=== PATIENT | male | born 1965 | race Caucasian/White ===

== ENCOUNTER 2019-01-14 15:17 | Emergency (ER) | payer OTHER ==
--- NOTE | 2019-01-14 16:30 | ED ---
Fall HPI - General Chief Complaint: Fall Stated Complaint: Fall, rib pain Time Seen by Provider: 01/14/19 16:00 Source: patient Mode of arrival: ambulatory - History of Present Illness Initial Comments: 53-year-old male with diabetes and hypertension presents today for chief complaint of right rib pain and fall and ice. Patient states bodies at work he slipped and fell on ice, he states as he fell he landed on his right side with his right elbow digging into his right side of his wrist. Patient denies hitting his head, patient denies any neck, back pain, headache, visual changes, elbow and shoulder pain, lower extremity pain. Patient states his only pain is at the right side of his ribs, 8 he states is increased with deep inspiration. Patient denies any chest pain, dyspnea, dyspnea on exertion. Upon arrival patient appears well no signs of distress. Patient pleasant. Remaining review of system negative, patient denies any recent fever, chills, abdominal pain, nausea or vomiting, numbness or tingling, dysuria or hematuria, constipation or diarrhea, or visual changes, or any other complaints. Review of Systems ROS Statement: Those systems with pertinent positive or pertinent negative responses have been documented in the HPI. ROS Other: All systems not noted in ROS Statement are negative. Past Medical History Past Medical History: Diabetes Mellitus, Hyperlipidemia, Hypertension, Thyroid Disorder History of Any Multi-Drug Resistant Organisms: None Reported Additional Past Surgical History / Comment(s): cataract surgery, cleft lip surgery Past Psychological History: No Psychological Hx Reported Smoking Status: Never smoker Past Alcohol Use History: None Reported Past Drug Use History: None Reported General Exam - General Exam Comments Initial Comments: General: The patient is awake and alert, in no distress, and does not appear acutely ill. Eye: Pupils are equal, round and reactive to light, extra-ocular movements are intact. No nystagmus. There is normal conjunctiva bilaterally. No signs of icterus. Ears, nose, mouth and throat: There are moist mucous membranes and no oral lesions. Neck: The neck is supple, there is no tenderness or JVD. No midline tenderness to patient of the entire length of spell call from cervical to lumbar. No paravertebral tenderness. Patient is able to fully range of the cervical spine with flexion, extension, lateral flexion and rotation. Cardiovascular: There is a regular rate and rhythm. No murmur, rub or gallop is appreciated. Respiratory: Lungs are clear to auscultation, respirations are non-labored, breath sounds are equal. No wheezes, stridor, rales, or rhonchi. Breath sounds present in all lung mercado. Gastrointestinal: Soft, non-distended, non-tender abdomen without masses or organomegaly noted. There is no rebound or guarding present. No CVA tenderness. Bowel sounds are unremarkable. Musculoskeletal: Under palpation over the right lateral lower ribs. No bruising or ecchymosis no soft tissue swelling. Normal ROM, no tenderness of the lower extremities and upper extremities equal and comparison bilaterally. Strength 5/5 of the UE and LE equal in comparison b/l. Sensation intact of the UE and LE equal b/l. Radial and DP pulses equal bilaterally 2+. Neurological: A&O x 3. CN II-XII intact, There are no obvious motor or sensory deficits. Coordination appears grossly intact. Speech is normal. Skin: Skin is warm and dry and no rashes or lesions are noted. Psychiatric: Cooperative, appropriate mood & affect, normal judgment. Limitations: no limitations Course Vital Signs 01/14/19 18:05 Temperature 97.6 F Pulse Rate 90 Respiratory 18 Rate Blood Pressure 145/71 O2 Sat by Pulse 98 Oximetry Medical Decision Making - Medical Decision Making Appearing 53-year-old male there is no signs of distress or respiratory distress upon arrival. Patient appears comfortable. Patient complaining of right-sided rib pain. Chest x-ray negative for pneumothorax. Breath sounds are present in all lung mercado. There is no evidence of rib fracture. Most likely rib contusion at this time. Patient denies any significant pain of the right elbow. Patient denies head injury or neck injury. He denies any complaints of back pain. Patient at this time is stable for discharge with return parameters for any concerning symptoms. Patient was given incentive spirometer to prevent splinting and possible left pneumonia from rib contusion. Patient is agreeable plan and discharge, I instructed patient to follow up outpatient with primary care provider in the next 1-2 days. Patient verbalized understanding. I discussed the case with attending provider Dr. Harrell who agreed with impression and plan. Disposition Clinical Impression: Bruised rib Disposition: HOME SELF-CARE Condition: Good Instructions (If sedation given, give patient instructions): Rib Contusion (ED) Additional Instructions: Please use medication as discussed. Please follow-up with family doctor in the next 2 days. Please return to emergency room if the symptoms increase or worsen or for any other concerns. Is patient prescribed a controlled substance at d/c from ED?: No Referrals: Reynaldo Toribio MD [Primary Care Provider] - 1-2 days Time of Disposition: 17:28
--- NOTE | 2019-01-14 17:09 | XR ---
Chest x-ray and right RIBS 5 views. History right rib pain. Comparison none. FINDINGS: There is some linear density at the left lung base. There is no evidence of pleural effusion or pneum othorax. Heart and mediastinum are normal. The right ribs appear intact. There is some spurring at th e glenohumeral joint. IMPRESSION: No fracture seen. Subsegmental atelectasis in the left lower lobe. Normal heart.
[2019-01-14 18:09] VITALS: BP 145/71; PULSE 90; RESP 18; TEMP 97.6
== END 2019-01-14 18:09 | disposition home or self-care (01) ==
LOC: EC 15:17
DX: S20.211A Contusion of right front wall of thorax, initial encounter (principal); W00.0XXA Fall on same level due to ice and snow, initial encounter; Y92.69 Other specified industrial and construction area as the place of occurrence of the external cause; Y99.0 Civilian activity done for income or pay
CPT/HCPCS: 99283

== ENCOUNTER → 2019-01-18 | Outpatient (CLI) | payer OTHER ==
--- NOTE | 2019-01-18 09:10 | XR ---
EXAMINATION TYPE: XR elbow complete RT DATE OF EXAM: 01/18/2019 COMPARISON: None HISTORY: Slip and fall, pain TECHNIQUE: Three-view right elbow FINDINGS: No acute fractures are evident. Radius aligns normally with the humerus. Anterior fat pad i s normal. No elevation of posterior fat pad is evident which is normal. Soft tissues appear unremarka ble. IMPRESSION: 1. Normal three-view right elbow. 2. Follow-up exams can be performed 7-10 days from acute trauma for continued pain.
== END | disposition home or self-care (01) ==
LOC: RADXRMAIN 07:56
PROVIDERS: ATTEND Emergency Medicine
DX: S50.01XA Contusion of right elbow, initial encounter (principal)

== ENCOUNTER → 2020-10-23 | Outpatient (CLI) | payer BC ==
--- NOTE | 2020-10-23 13:30 | US ---
EXAMINATION TYPE: US kidneys/renal and bladder DATE OF EXAM: 10/23/2020 COMPARISON: NONE CLINICAL HISTORY: R80.9 Proteinuria, unspecified . Abnormal labs. EXAM MEASUREMENTS: Right Kidney: 9.8 x 5.4 x 4.4 cm Left Kidney: 11.2 x 5.0 x 4.3 cm Right Kidney: No hydronephrosis or masses seen Left Kidney: No hydronephrosis or masses seen Bladder: Anechoic Bilateral Jets seen: No Urinary bladder is sonolucent IMPRESSION: 1. Normal renal ultrasound
== END | disposition home or self-care (01) ==
LOC: RADUSWWP 12:53
PROVIDERS: ATTEND Family Medicine
DX: R80.9 Proteinuria, unspecified (principal)
CPT/HCPCS: 76770

== ENCOUNTER → 2022-12-20 | Outpatient (CLI) | payer BC ==
--- NOTE | 2022-12-20 15:54 | US ---
EXAMINATION TYPE: US kidneys/renal and bladder DATE OF EXAM: 12/20/2022 COMPARISON: NONE CLINICAL HISTORY: 57-year-old male N18.32 CHRONIC KIDNEY DISEASE, STAGE 3B. CKD TECHNIQUE: Multiple sonographic images of the kidneys and bladder are obtained. FINDINGS: EXAM MEASUREMENTS: Right Kidney: 10.5 x 5.0 x 4.9 cm Left Kidney: 11.0 x 4.7 x 5.9 cm Right Kidney: no evidence of hydronephrosis or mass Left Kidney: no evidence of hydronephrosis or mass Bladder: wnl Bilateral Jets seen: yes IMPRESSION: No hydronephrosis.
== END | disposition home or self-care (01) ==
LOC: RADUSWWP 10:53
PROVIDERS: ATTEND Internal Medicine
DX: N18.32 Chronic kidney disease, stage 3b (principal)
CPT/HCPCS: 76770

== ENCOUNTER → 2024-04-11 | Outpatient (CLI) | payer BC ==
--- NOTE | 2024-04-11 17:42 | US ---
EXAMINATION TYPE: US kidneys/renal and bladder DATE OF EXAM: 04/11/2024 COMPARISON: 12/20/2022 CLINICAL INDICATION: Male, 58 years old with history of N18.32 CHRONIC KIDNEY DISEASE; Abnormal labs. No symptoms. EXAM MEASUREMENTS: Right Kidney: 9.9 x 4.9 x 5.1 cm Left Kidney: 9.3 x 5.0 x 5.5 cm Right Kidney: No hydronephrosis or masses seen Left Kidney: No hydronephrosis or masses seen Bladder: distended, anechoic Left jet seen There is no evidence for hydronephrosis at this point in time. No nephrolithiasis is seen. No neema s are identified. The urinary bladder is anechoic. Left bladder jet seen. IMPRESSION: Kidneys demonstrate mild decrease in size compared to the prior study but no solid renal mass, calcul us or hydronephrosis.
== END | disposition home or self-care (01) ==
LOC: RADUSWWP 07:02
PROVIDERS: ATTEND Internal Medicine
DX: N18.32 Chronic kidney disease, stage 3b (principal); N28.89 Other specified disorders of kidney and ureter; R79.9 Abnormal finding of blood chemistry, unspecified
CPT/HCPCS: 76770